=== PATIENT | male | born 1980 | race Caucasian/White ===

== ENCOUNTER → 2020-04-30 09:13 | Outpatient (BNVA) | payer MEDICARE, MEDICAID, SELFPAY | PROVIDERS: PCP Nurse Practitioner Family; Referring Provider Nurse Practitioner Family; Visit Provider Student in an Organized Health Care Education/Training Program | DX: Z76.89 Persons encountering health services in other specified circumstances (principal) | CPT/HCPCS: Q3014 ==

== ENCOUNTER → 2020-06-30 07:30 | Outpatient (BNVA) | payer MEDICARE, MEDICAID, SELFPAY | PROVIDERS: PCP Nurse Practitioner Family; Visit Provider Physician Assistant | DX: Z76.89 Persons encountering health services in other specified circumstances (principal) | CPT/HCPCS: Q3014 ==

== ENCOUNTER 2020-07-08 09:14 | Outpatient (REF) | payer MEDICARE, MEDICAID, SELFPAY ==
--- NOTE | ~2020-07-08 | FL_ITS ---
EXAMINATION: FL BARIUM SWALLOW CLINICAL INFORMATION: Dysphagia COMPARISON: None TECHNIQUE: Barium swallow examination is performed using fluoroscopic evaluation in addition to multiple fluoroscopic spot views. The patient is imaged both upright and prone and using both thick and thin sulfate along with effervescent granules. Fluoroscopy time: 1.3 minutes DAP: 14.7 Gycm2 Images: 79 FINDINGS: Esophagus demonstrates normal distention and motility. No discrete filling defects, mass or mucosal lesions identified. Patient swallowed a barium tablet, with normal passage to the stomach. No hiatal hernia seen. No reflux is seen in the supine position. FL/FL barium swallow IMPRESSION: No significant abnormality demonstrated by barium swallow study. Further evaluation with endoscopy as clinically warranted.
== END 2020-07-08 09:15 | disposition home or self-care (01) ==
LOC: HO.XRAY 09:14
PROVIDERS: Visit Provider Physician Assistant
DX: R13.10 Dysphagia, unspecified (principal)
CPT/HCPCS: 74220

== ENCOUNTER → 2020-07-22 08:29 | Outpatient (BNVA) | payer MEDICARE, MEDICAID, SELFPAY | PROVIDERS: PCP Nurse Practitioner Family; Visit Provider Physician Assistant | DX: Z13.89 Encounter for screening for other disorder (principal) | CPT/HCPCS: 99212 ==

== ENCOUNTER → 2020-08-25 08:40 | Outpatient (BNVA) | payer MEDICARE, MEDICAID, SELFPAY | PROVIDERS: PCP Nurse Practitioner Family; Visit Provider Student in an Organized Health Care Education/Training Program | DX: M1A.09X0 Idiopathic chronic gout, multiple sites, without tophus (tophi) (principal) | CPT/HCPCS: 99212 ==

== ENCOUNTER 2020-09-25 10:30 | Outpatient (REF) | payer MEDICARE, MEDICAID, SELFPAY ==
[2020-09-25 11:36] LABS: Alanine Aminotransferase 24 U/L (0-40); Albumin Level 3.9 g/dL (3.5-5.0); Alkaline Phosphatase 81 U/L (39-117); Anion Gap 13 (12-20); Aspartate Amino Transferase 16 U/L (5-37); Bilirubin Total 0.4 mg/dL (0.0-1.0); Blood Urea Nitrogen 19 mg/dL (9-16); Calcium 8.7 mg/dL (8.4-10.2); Carbon Dioxide 22 mmol/L (22-29); Chloride 105 mmol/L (96-108); Estimated Glomerular Filt Rate > 60; Glucose Random 125 mg/dL (60-115); Potassium 4.1 mmol/L (3.3-5.1); Sodium 136 mmol/L (135-145); Total Protein 7.1 g/dL (6.5-8.0); Uric Acid 6.3 mg/dL (3.4-7.0)
== END 2020-09-25 10:31 | disposition home or self-care (01) ==
LOC: HO.HMGCLDS 10:30
PROVIDERS: PCP Nurse Practitioner Family; Visit Provider Student in an Organized Health Care Education/Training Program
DX: M1A.09X0 Idiopathic chronic gout, multiple sites, without tophus (tophi) (principal)
CPT/HCPCS: 36415; 80053; 84550

== ENCOUNTER → 2020-11-23 07:52 | Outpatient (BNVA) | payer MEDICARE, MEDICAID, SELFPAY | PROVIDERS: PCP Nurse Practitioner Family; Visit Provider Physician Assistant | DX: K21.9 Gastro-esophageal reflux disease without esophagitis (principal) | CPT/HCPCS: Q3014 ==

== ENCOUNTER 2020-12-28 08:39 | Outpatient (REF) | payer MEDICARE, MEDICAID, SELFPAY ==
[2020-12-28 12:03] LABS: Alanine Aminotransferase 38 U/L (0-40); Albumin Level 3.9 g/dL (3.5-5.0); Alkaline Phosphatase 79 U/L (39-117); Anion Gap 14 (12-20); Aspartate Amino Transferase 23 U/L (5-37); Bilirubin Total 0.4 mg/dL (0.0-1.0); Blood Urea Nitrogen 15 mg/dL (9-16); Carbon Dioxide 22 mmol/L (22-29); Chloride 108 mmol/L (96-108); Cholesterol 156 mg/dL; Estimated Glomerular Filt Rate > 60; Glucose Fasting 87 mg/dL (60-99); HDL Cholesterol 42 mg/dL; LDL Cholesterol Calculated 103 mg/dl; Potassium 4.5 mmol/L (3.3-5.1); Sodium 139 mmol/L (135-145); Total Protein 7.1 g/dL (6.5-8.0); Triglycerides 56 mg/dL
== END 2020-12-28 08:40 | disposition home or self-care (01) ==
LOC: HO.HMGCLDS 08:39
PROVIDERS: PCP Nurse Practitioner Family; Visit Provider Nurse Practitioner Family
DX: Z00.00 Encounter for general adult medical examination without abnormal findings (principal)
CPT/HCPCS: 36415; 80053; 80061; 84443

== ENCOUNTER → 2021-07-13 08:56 | Outpatient (BNVA) | payer MEDICARE, MEDICAID, SELFPAY | PROVIDERS: PCP Nurse Practitioner Family; Visit Provider Nurse Practitioner Family | DX: M1A.09X0 Idiopathic chronic gout, multiple sites, without tophus (tophi) (principal) | CPT/HCPCS: 99212 ==

== ENCOUNTER 2021-07-16 09:11 | Outpatient (REF) | payer MEDICARE, MEDICAID, SELFPAY ==
[2021-07-16 11:31] LABS: Alanine Aminotransferase 35 U/L (0-40); Alkaline Phosphatase 82 U/L (39-117); Anion Gap 11 (12-20); Aspartate Amino Transferase 24 U/L (5-37); Bilirubin Total 0.5 mg/dL (0.0-1.0); Blood Urea Nitrogen 16 mg/dL (9-16); Calcium 9.1 mg/dL (8.4-10.2); Carbon Dioxide 26 mmol/L (22-29); Chloride 106 mmol/L (96-108); Estimated Glomerular Filt Rate > 60; Glucose Random 99 mg/dL (60-115); Potassium 4.6 mmol/L (3.3-5.1); Sodium 138 mmol/L (135-145); Total Protein 7.2 g/dL (6.5-8.0); Uric Acid 4.7 mg/dL (3.4-7.0)
== END 2021-07-16 09:12 | disposition home or self-care (01) ==
LOC: HO.HMGCLDS 09:11
PROVIDERS: PCP Nurse Practitioner Family; Visit Provider Nurse Practitioner Family
DX: M10.9 Gout, unspecified (principal)
CPT/HCPCS: 36415; 80053; 84550

== ENCOUNTER 2021-12-13 08:11 | Outpatient (REF) | payer MEDICARE, MEDICAID, SELFPAY ==
[2021-12-13 11:22] LABS: MANUAL DIFF FLAG NO
[2021-12-13 11:45] LABS: Basophils Absolute Auto 0.1 X10*3/uL (0.0-0.2); Basophils Percent Auto 1.4 % (0-2); Eosinophils Absolute Auto 0.1 X10*3/uL (0.0-0.4); Eosinophils Percent Auto 1.9 % (0-4); Hematocrit 50.7 % (42.0-52.0); Hemoglobin 17.6 g/dl (14.0-18.0); Imm Gran Abs Auto 0.01 X10*3/uL (0.00-0.03); Imm Gran Pct Auto 0.2 % (0.0-0.4); Lymphocytes Absolute Auto 1.6 X10*3/uL (1.2-4.9); Lymphocytes Percent Auto 32.6 % (20-40); Mean Corpuscular HGB Conc 34.7 g/dl (31.0-36.0); Mean Corpuscular Hemoglobin 32.7 pg (27.0-33.0); Mean Corpuscular Volume 94.2 fL (80.0-98.0); Mean Platelet Volume 10.1 fL (9.4-12.4); Monocytes Absolute Auto 0.5 X10*3/uL (0.1-1.2); Monocytes Percent Auto 9.5 % (2-11); Neutrophils Absolute Auto 2.6 x10*3/uL (2.0-8.3); Neutrophils Percent Auto 54.4 % (45-73); Platelet Count 177 X10*3/uL (160-400); Red Blood Count 5.38 X10*6/uL (4.60-5.80); Red Cell Distribution Width 14.6 % (11.0-16.0); White Blood Count 4.9 X10*3/uL (4.8-10.8)
[2021-12-13 11:56] LABS: Alanine Aminotransferase 22 U/L (0-40); Alkaline Phosphatase 77 U/L (39-117); Anion Gap 15 (12-20); Aspartate Amino Transferase 17 U/L (5-37); Bilirubin Total 0.7 mg/dL (0.0-1.0); Blood Urea Nitrogen 14 mg/dL (9-16); Carbon Dioxide 22 mmol/L (22-29); Chloride 105 mmol/L (96-108); Cholesterol 151 mg/dL; Estimated Glomerular Filt Rate > 60; Glucose Fasting 103 mg/dL (60-99); HDL Cholesterol 44 mg/dL; LDL Cholesterol Calculated 90 mg/dl; Potassium 4.3 mmol/L (3.3-5.1); Sodium 138 mmol/L (135-145); Total Protein 7.2 g/dL (6.5-8.0); Triglycerides 86 mg/dL
[2021-12-13 12:00] LABS: TSH reflex Free T4 3.25 uIU/mL (0.32-4.0)
== END 2021-12-13 08:12 | disposition home or self-care (01) ==
LOC: HO.HMGCLDS 08:11
PROVIDERS: PCP Nurse Practitioner Family; Visit Provider Nurse Practitioner Family
DX: Z00.00 Encounter for general adult medical examination without abnormal findings (principal)
CPT/HCPCS: 36415; 80053; 80061; 84443; 85025

== ENCOUNTER → 2022-05-16 14:21 | Outpatient (BNVA) | payer MEDICARE, MEDICAID, SELFPAY | PROVIDERS: PCP Nurse Practitioner Family; Visit Provider Nurse Practitioner Family | DX: M1A.09X0 Idiopathic chronic gout, multiple sites, without tophus (tophi) (principal); I50.9 Heart failure, unspecified; Q90.9 Down syndrome, unspecified; Q21.3 Tetralogy of Fallot | CPT/HCPCS: 99212 ==

== ENCOUNTER 2022-05-20 11:06 | Outpatient (REF) | payer MEDICARE, MEDICAID, SELFPAY ==
[2022-05-20 14:16] LABS: Blood Urea Nitrogen 13 mg/dL (9-16); Estimated Glomerular Filt Rate > 60; Uric Acid 4.8 mg/dL (3.4-7.0)
== END 2022-05-20 11:07 | disposition home or self-care (01) ==
LOC: HO.HMGCLDS 11:06
PROVIDERS: PCP Nurse Practitioner Family; Visit Provider Nurse Practitioner Family
DX: M10.9 Gout, unspecified (principal)
CPT/HCPCS: 36415; 82565; 84520; 84550

== ENCOUNTER 2022-06-24 09:47 | Outpatient (REF) | payer MEDICARE, MEDICAID, SELFPAY ==
[2022-06-24 11:03] LABS: MANUAL DIFF FLAG NO
[2022-06-24 11:09] LABS: Basophils Percent Auto 0.7 % (0-2); Eosinophils Absolute Auto 0.1 X10*3/uL (0.0-0.4); Eosinophils Percent Auto 1.4 % (0-4); Hematocrit 48.7 % (42.0-52.0); Imm Gran Abs Auto 0.01 X10*3/uL (0.00-0.03); Imm Gran Pct Auto 0.2 % (0.0-0.4); Lymphocytes Absolute Auto 1.7 X10*3/uL (1.2-4.9); Lymphocytes Percent Auto 39.4 % (20-40); Mean Corpuscular HGB Conc 34.9 g/dl (31.0-36.0); Mean Corpuscular Hemoglobin 32.7 pg (27.0-33.0); Mean Corpuscular Volume 93.7 fL (80.0-98.0); Monocytes Absolute Auto 0.3 X10*3/uL (0.1-1.2); Monocytes Percent Auto 7.9 % (2-11); Neutrophils Absolute Auto 2.2 x10*3/uL (2.0-8.3); Neutrophils Percent Auto 50.4 % (45-73); Platelet Count 197 X10*3/uL (160-400); Red Cell Distribution Width 14.2 % (11.0-16.0); White Blood Count 4.3 X10*3/uL (4.8-10.8)
[2022-06-24 11:42] LABS: Alanine Aminotransferase 29 U/L (0-40); Albumin Level 3.8 g/dL (3.5-5.0); Alkaline Phosphatase 84 U/L (39-117); Anion Gap 14 (12-20); Aspartate Amino Transferase 24 U/L (5-37); Bilirubin Total 0.7 mg/dL (0.0-1.0); Blood Urea Nitrogen 15 mg/dL (9-16); Calcium 8.7 mg/dL (8.4-10.2); Carbon Dioxide 21 mmol/L (22-29); Chloride 108 mmol/L (96-108); Cholesterol 147 mg/dL; Estimated Glomerular Filt Rate > 60; Glucose Fasting 95 mg/dL (60-99); HDL Cholesterol 44 mg/dL; LDL Cholesterol Calculated 93 mg/dl; Potassium 4.3 mmol/L (3.3-5.1); Sodium 139 mmol/L (135-145); TSH reflex Free T4 0.83 uIU/mL (0.32-4.0); Total Protein 6.9 g/dL (6.5-8.0); Triglycerides 50 mg/dL
== END 2022-06-24 09:48 | disposition home or self-care (01) ==
LOC: HO.HMGCLDS 09:47
PROVIDERS: PCP Nurse Practitioner Family; Visit Provider Nurse Practitioner Family
DX: K21.9 Gastro-esophageal reflux disease without esophagitis (principal); E03.9 Hypothyroidism, unspecified
CPT/HCPCS: 36415; 80053; 80061; 84443; 85025

== ENCOUNTER 2023-03-20 08:54 | Outpatient (AMB) | payer MEDICARE, MEDICAID, SELFPAY ==
--- NOTE | 2023-03-20 09:10 | MHC.PC.OV ---
Vital Signs 03/20/23 09:13 Height 5 ft 4 in Weight 155 lb BMI 26.6 BP 98/60 Blood Pressure Location Rt brachial Position Sitting Pulse 69 Pulse Source Pulse Oximeter Pulse Oximetry (%) 97 Oxygen Delivery Method Room Air Intake Visit Reasons: PE/ Covered by Insurance Allergies raspberry [RASPBERRY] Allergy (Severe, Verified 03/20/23 10:51) HIVES SALMON Allergy (Severe, Uncoded 03/20/23 10:51) HIVES Medication List - Last Reconciled 03/20/23 by DIEGO Guardado allopurinol 300 mg PO DAILY levothyroxine (Euthyrox) 50 mcg PO DAILY 90 days omeprazole 40 mg PO DAILY 30 days Tobacco use date assessed: 06/19/22 Dental Screening Dental Screen Date: 03/20/23 Did you have a dental visit in the last 12 months?: No Did you have a dental problem in the last 6 months where you did not have access to dental care?: No Was dental information given to patient?: Patient has dentist HPI PE/ Covered by Insurance HPI Details Pt is here for a PE. Will order labs. Pt follows up with cardiology. [facility] Medical History Dysphagia Tetralogy of Fallot Down syndrome Acid reflux Gout Surgical History History of cholecystectomy Family History Paternal Grandfather Prostate cancer Paternal Grandmother Colon cancer Mother Hypertension Maternal Grandmother Mental health disorder Social History Household Members: Family Housing: House Alcohol intake: never Patient Tobacco Use Status: Never used Tobacco e-Cigarette/Vaping Use: Never Used Second Hand Smoke Exposure: No Current occupational status: disabled Cognitive needs: No Hearing needs: No Vision needs: No Questionnaire Thrive Questionnaire Date Thrive assessed: 12/13/21 AUDIT C Alcohol Use Questionnaire (AUDIT-C) 1. How often do you have a drink containing alcohol?: Never 3. How often do you have six or more drinks on one occasion?: Never Total Score: 0 Score Reviewed/Action Taken: No VICTORINO-7 AMB Questionnaire VICTORINO-7 Date VICTORINO - 7 assessed: 12/13/21 Source: Developed by Drs. Dony Madrigal, Harleen Mack, Rodrigo Zavala and colleagues, with an educational muna from [employer]. Review of Systems Const Denies chills and Denies fever(s) Eyes Denies blurry vision ENT Denies vertigo, Denies dizziness and Denies sore throat Card Denies chest pain at rest, Denies chest pain with activity, Denies diaphoresis, Denies dyspnea and Denies dyspnea on exertion Resp Denies cough, Denies dyspnea, Denies dyspnea on exertion and Denies wheezing GI Denies abdominal pain, Denies melena, Denies hematochezia, Denies constipation, Denies diarrhea and Denies loose stools Denies hematuria Musc Denies numbness and Denies tingling Skin/Breast Denies lesions Neuro Denies vertigo, Denies dizziness, Denies numbness and Denies tingling Psych Denies anxiety, Denies depression, Denies homicidal ideation, Denies suicidal ideation and Denies other (substance abuse) Aller/Immun Denies wheezing Physical exam (Primary Care) Vital Signs: Last Vital Signs Pulse 69 03/20/23 09:13 BP 98/60 03/20/23 09:13 Pulse Ox 97 03/20/23 09:13 Oxygen Delivery Method Room Air 03/20/23 09:13 BMI result Body Mass Index 26.6 Tobacco/Smoking Status: Tobacco use Status Tobacco use date assessed 06/19/22 03/20/23 09:11 Patient Tobacco Use Status Never used Tobacco 03/20/23 09:11 e-Cigarette/Vaping Use Never Used 03/20/23 09:11 Thrive Assessment: Date of Thrive Assessment Date Thrive assessed 12/13/21 03/20/23 09:11 Const General: cooperative Nutritional Appearance: well nourished Orientation/consciousness: patient oriented x3 HENMT Head: Yes normal to inspection, Yes normocephalic and Yes atraumatic Ears: TM's normal bilaterally Eyes General: appearance normal, both eyes and all related structures Alignment and Position: alignment normal and position normal Neck Neck: Yes normal visual inspection and Yes no lymphadenopathy Thyroid: Thyroid normal Resp Effort & Inspection: normal respiratory effort Auscultation: clear to auscultation bilaterally Cardio Rate: regular rate Rhythm: regular rhythm Heart sounds: S1 normal heart sound present, S2 normal heart sound present and Murmur heart sound present systolic GI Palpation (GI): Soft to palpation and nontender Auscultation: normal bowel sounds Male General Exam: Yes normal external exam Penis: normal penis Scrotum: scrotum normal, testes descended bilaterally and no inguinal hernias Testes: no testicular mass Skin Rashes: no rashes Neuro General: patient oriented x3, moves all extremities, no focal motor deficits and deep tendon reflexes 2+ bilaterally Romberg Test: Negative Psych Appearance: grossly normal Mental Status: mental status grossly normal Speech and movement: Normal speech and movement present Affect: normal affect Attitude: cooperative Thought process: Normal thought process present Thought content: Normal thought content present Insight: Good insight present (Psych) Judgement: Good judgement present (Psych) Assessment and Plan Assessment & Plan (1) Physical exam: Code(s): Z00.00 - Encounter for general adult medical examination without abnormal findings Plan: Labs ordered (2) Gout: Code(s): M10.9 - Gout, unspecified Qualifiers: Chronicity: chronic Gout etiology: idiopathic Gout site: multiple sites Presence of tophus: without tophus Qualified Code(s): M1A.09X0 - Idiopathic chronic gout, multiple sites, without tophus (tophi) Plan: Uric acid ordered Plan The patient agreed to the use of a back office medical assistant for this encounter. Scribed for DIEGO Agarwal by Venecia Cisneros back office medical assistant, on 03/20/2023 at 09:30 EST. Orders: Orders Complete Blood Count Auto Diff Today Z00.00 - Encounter for general adult medical examination without abnormal findings Comprehensive [place]. Panel Fast Today Z00.00 - Encounter for general adult medical examination without abnormal findings TSH reflex Free T4 Today Z00.00 - Encounter for general adult medical examination without abnormal findings UA CC w/rflx Micro + Cult Today Z00.00 - Encounter for general adult medical examination without abnormal findings Lipid Panel Today Z00.00 - Encounter for general adult medical examination without abnormal findings Uric Acid Today M10.9 - Gout, unspecified Coding Level of Care Code Est Pt Prev Care 40-64y(40957) Diagnoses Physical exam Z00.00 Idiopathic chronic gout of multiple sites without tophus M1A.09X0 Chronicity: chronic Gout etiology: idiopathic Gout site: multiple sites Presence of tophus: without tophus
[2023-03-20 09:13] VITALS: BP 98/60; PULSE 69; O2SAT 97; BMI 26.6
== END 2023-03-20 13:03 | disposition home or self-care (01) ==
PROVIDERS: PCP Nurse Practitioner Family; Visit Provider Nurse Practitioner Family
DX: Z00.00 Encounter for general adult medical examination without abnormal findings (principal); M1A.09X0 Idiopathic chronic gout, multiple sites, without tophus (tophi)
CPT/HCPCS: 99396

== ENCOUNTER 2023-04-14 09:17 | Outpatient (REF) | payer MEDICARE, MEDICAID, SELFPAY ==
[2023-04-14 11:11] LABS: MANUAL DIFF FLAG NO
[2023-04-14 11:17] LABS: Basophils Absolute Auto 0.1 X10*3/uL (0.0-0.2); Basophils Percent Auto 1.3 % (0-2); Eosinophils Absolute Auto 0.1 X10*3/uL (0.0-0.4); Eosinophils Percent Auto 1.6 % (0-4); Hematocrit 49.9 % (42.0-52.0); Hemoglobin 16.8 g/dl (14.0-18.0); Imm Gran Abs Auto 0.01 X10*3/uL (0.00-0.03); Imm Gran Pct Auto 0.2 % (0.0-0.4); Lymphocytes Absolute Auto 1.7 X10*3/uL (1.2-4.9); Lymphocytes Percent Auto 37.9 % (20-40); Mean Corpuscular HGB Conc 33.7 g/dl (31.0-36.0); Mean Corpuscular Hemoglobin 31.6 pg (27.0-33.0); Monocytes Absolute Auto 0.4 X10*3/uL (0.1-1.2); Monocytes Percent Auto 8.7 % (2-11); Neutrophils Absolute Auto 2.2 x10*3/uL (2.0-8.3); Neutrophils Percent Auto 50.3 % (45-73); Platelet Count 198 X10*3/uL (160-400); Red Blood Count 5.31 X10*6/uL (4.60-5.80); Red Cell Distribution Width 14.9 % (11.0-16.0); White Blood Count 4.5 X10*3/uL (4.8-10.8)
[2023-04-14 11:35] LABS: Alanine Aminotransferase 33 U/L (0-40); Albumin Level 3.9 g/dL (3.5-5.0); Alkaline Phosphatase 81 U/L (39-117); Anion Gap 11 (12-20); Aspartate Amino Transferase 27 U/L (5-37); Bilirubin Total 0.6 mg/dL (0.0-1.0); Blood Urea Nitrogen 13 mg/dL (9-16); Calcium 8.7 mg/dL (8.4-10.2); Carbon Dioxide 24 mmol/L (22-29); Chloride 107 mmol/L (96-108); Cholesterol 142 mg/dL (<200); Estimated Glomerular Filt Rate > 60; Glucose Fasting 89 mg/dL (60-99); HDL Cholesterol 41 mg/dL (>40); LDL Cholesterol Calculated 91 mg/dL (<100); Potassium 4.1 mmol/L (3.3-5.1); Sodium 138 mmol/L (135-145); Total Protein 7.4 g/dL (6.5-8.0); Triglycerides 51 mg/dL (<150)
[2023-04-14 12:21] LABS: TSH reflex Free T4 1.85 uIU/mL (0.32-4.0)
== END 2023-04-14 09:18 | disposition home or self-care (01) ==
LOC: HO.HMGCLDS 09:17
PROVIDERS: PCP Nurse Practitioner Family; Visit Provider Nurse Practitioner Family
DX: Z00.00 Encounter for general adult medical examination without abnormal findings (principal); M10.9 Gout, unspecified; E03.9 Hypothyroidism, unspecified; I35.0 Nonrheumatic aortic (valve) stenosis
CPT/HCPCS: 36415; 80053; 80061; 84443; 84550; 85025

== ENCOUNTER 2023-06-23 10:10 | Outpatient (REF) | payer MEDICARE, MEDICAID, SELFPAY ==
[2023-06-23 11:00] LABS: MANUAL DIFF FLAG NO
[2023-06-23 11:02] LABS: Basophils Absolute Auto 0.1 X10*3/uL (0.0-0.2); Basophils Percent Auto 1.1 % (0-2); Eosinophils Absolute Auto 0.1 X10*3/uL (0.0-0.4); Eosinophils Percent Auto 1.7 % (0-4); Hematocrit 47.7 % (42.0-52.0); Hemoglobin 16.7 g/dl (14.0-18.0); Imm Gran Abs Auto 0.02 X10*3/uL (0.00-0.03); Imm Gran Pct Auto 0.4 % (0.0-0.4); Lymphocytes Absolute Auto 1.5 X10*3/uL (1.2-4.9); Mean Corpuscular Hemoglobin 33.1 pg (27.0-33.0); Mean Corpuscular Volume 94.6 fL (80.0-98.0); Mean Platelet Volume 9.7 fL (9.4-12.4); Monocytes Absolute Auto 0.3 X10*3/uL (0.1-1.2); Monocytes Percent Auto 5.9 % (2-11); Neutrophils Absolute Auto 2.7 x10*3/uL (2.0-8.3); Neutrophils Percent Auto 57.9 % (45-73); Platelet Count 189 X10*3/uL (160-400); Red Blood Count 5.04 X10*6/uL (4.60-5.80); Red Cell Distribution Width 14.2 % (11.0-16.0); White Blood Count 4.6 X10*3/uL (4.8-10.8)
== END 2023-06-23 10:11 | disposition home or self-care (01) ==
LOC: HO.HMGCLDS 10:10
PROVIDERS: PCP Nurse Practitioner Family; Visit Provider Nurse Practitioner Family
DX: D72.819 Decreased white blood cell count, unspecified (principal)
CPT/HCPCS: 36415; 85025

== ENCOUNTER 2023-07-20 09:17 | Outpatient (AMB) | payer MEDICARE, MEDICAID, SELFPAY ==
--- NOTE | 2023-07-20 09:20 | A.OFFVIS_ITS ---
Intake Vital Signs 07/20/23 09:28 Height 5 ft 4 in Weight 159 lb 2.78 oz BMI 27.3 BP 118/70 Blood Pressure Location Rt brachial Position Sitting Pulse 95 Pulse Source Pulse Oximeter Temp 97.9 F Temp Source Skin Pulse Oximetry (%) 95 Oxygen Delivery Method Room Air Intake Visit Reasons: Gout Intake Note: Patient last seen 05/16/22 by Alyssia, presents today for follow up. 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 Cook is a 42yoM with a PMH of Down syndrome and gout ( diagnosed in 2018) who presents for follow-up of gout. He is accompanied by his mother and young nephew. He has not had any gout flares since last visit. He continues on Allopurinol 300mg daily. Previously taking colchicine 0.6mg PRN for flares which he has not needed. Patient continues to do well and denies joint pain today. Continues to adhere to a gout friendly diet. Patient denies any concerns today. History of CHF, and had surgery for Tetralogy of Fallot as a baby, he follows with Cardiology, Dr Armendariz, in [place] and has an upcoming visit. [facility] Medical History (Updated 07/20/23 @ 10:04 by Fanta Courtney [facility]) Heart murmur Dysphagia Tetralogy of Fallot Down syndrome Acid reflux Gout Surgical History History of cholecystectomy Family History Paternal Grandfather Prostate cancer Paternal Grandmother Colon cancer Mother Hypertension Maternal Grandmother Mental health disorder Social History Household Members: Family Housing: House Alcohol intake: never Patient Tobacco Use Status: Never used Tobacco e-Cigarette/Vaping Use: Never Used Second Hand Smoke Exposure: No Current occupational status: disabled Cognitive needs: No Hearing needs: No Vision needs: No Physical Exam Vital Signs: Last Vital Signs Temp 97.9 F 07/20/23 09:28 Pulse 95 07/20/23 09:28 BP 118/70 07/20/23 09:28 Pulse Ox 95 07/20/23 09:28 Oxygen Delivery Method Room Air 07/20/23 09:28 BMI result Body Mass Index 27.3 Vital signs reviewed. Constitutional: Non-toxic appearing. No acute distress. groomed, and well- nourished. HEENT: Normocephalic and atraumatic. External auditory canals without erythema or edema bilaterally. Dry mucous membranes. No pharyngeal erythema or exudates. Skin: Warm and dry. No rashes or lesions noted. Neck: Full and painless range of motion. No cervical lymphadenopathy. Cardio: Systolic murmurs, gallops, No lower extremity edema. No JVD. Pulmonary: No respiratory distress. No accessory muscle usage. Gastrointestinal: Soft, nontender, and nondistended in all 4 quadrants. Normoactive bowel sounds in all 4 quadrants. Musculoskeletal: Normal range of motion in joints throughout the body. No deformity or other signs of injury. No tenderness at knees Neuro: Alert and oriented x4. Cranial nerves 2-12 grossly intact. No focal deficits appreciated. Results Reviewed Results Reviewed: Laboratory Tests 07/16/21 12/13/21 12/13/21 09:30 08:20 08:20 WBC 4.9 RBC 5.38 Hgb 17.6 Hct 50.7 Plt Count 177 Absolute Neuts (auto) 2.6 Sodium 138 Potassium 4.3 Anion Gap 15 BUN 14 Creatinine 0.87 Fasting Glucose 103 H Uric Acid 4.7 Calcium 9.0 AST 17 ALT 22 TSH 3.25 Laboratory Tests 04/14/23 04/14/23 06/23/23 09:29 09:29 10:16 WBC 4.5 L 4.6 L RBC 5.31 5.04 Hgb 16.8 16.7 Hct 49.9 47.7 TSH 1.85 Laboratory Tests 04/14/23 09:29 Uric Acid 6.0 Assessment & Plan Assessment & Plan (1) Gout: Code(s): M10.9 - Gout, unspecified Qualifiers: Gout site: multiple sites Gout etiology: idiopathic Chronicity: chronic Presence of tophus: without tophus Qualified Code(s): M1A.09X0 - Idiopathic chronic gout, multiple sites, without tophus (tophi) (2) Heart murmur: Code(s): R01.1 - Cardiac murmur, unspecified Plan #Gout: The patient with a history of gout on allopurinol 300 mg daily. Has not needed to take colchicine 0.6 mg as needed for gout flares.? No gout flares in more than 1 year. Uric acid more elevated from 4.7mg/dL to 6.0 04/2023. Mom says she has been giving him some treats here and there that may not be good for the gout. I will not make any changes at this time, given he has been without flares. He will continue allopurinol 300 mg daily.? Will obtain labs for kidney function and uric acid levels 1 week before next visit. #Heart Murmur: Blowing Murmur, possible systolic noted on exam, continue follow-up with cardiology. Advised to contact our office if he does have a gout flare. Follow-up in the office in 1 year or sooner if needed.? 20 minutes spent reviewing chart, evaluating patient and documenting. Orders: Orders 2 Comprehensive Met. Panel 1 Year M10.9 - Gout, unspecified Erythrocyte Sedimentation Rate 1 Year M10.9 - Gout, unspecified Uric Acid 1 Year M10.9 - Gout, unspecified Uric Acid Today M10.9 - Gout, unspecified Complete Blood Count Auto Diff 1 Year M10.9 - Gout, unspecified C Reactive Protein 1 Year M10.9 - Gout, unspecified C Reactive Protein Today M10.9 - Gout, unspecified Comprehensive Met. Panel Today M10.9 - Gout, unspecified Complete Blood Count Auto Diff Today M10.9 - Gout, unspecified Erythrocyte Sedimentation Rate Today M10.9 - Gout, unspecified Medications: New colchicine 0.6 mg PO DAILY 10 tabs 0RF M10.9 - Gout, unspecified Coding Level of Care Code Est Pt Level 3 (29832) Diagnoses Idiopathic chronic gout of multiple sites without tophus M1A.09X0 Gout site: multiple sites Gout etiology: idiopathic Chronicity: chronic Presence of tophus: without tophus Heart murmur R01.1
[2023-07-20 09:28] VITALS: BP 118/70; PULSE 95; TEMP 36.6; O2SAT 95; BMI 27.3
== END 2023-07-20 09:55 | disposition home or self-care (01) ==
PROVIDERS: PCP Nurse Practitioner Family; Visit Provider Nurse Practitioner Family
DX: M1A.09X0 Idiopathic chronic gout, multiple sites, without tophus (tophi) (principal); R01.1 Cardiac murmur, unspecified
CPT/HCPCS: 99213

== ENCOUNTER → 2023-07-20 09:17 | Outpatient (BNVA) | payer MEDICARE, MEDICAID, SELFPAY | PROVIDERS: PCP Nurse Practitioner Family; Visit Provider Nurse Practitioner Family | DX: M1A.09X0 Idiopathic chronic gout, multiple sites, without tophus (tophi) (principal); R01.1 Cardiac murmur, unspecified | CPT/HCPCS: 99212 ==

== ENCOUNTER 2024-02-13 08:12 | Outpatient (AMB) | payer MEDICARE, MEDICAID, SELFPAY ==
[2024-02-13 08:15] VITALS: BP 118/68; PULSE 52; O2SAT 100; BMI 27.0
--- NOTE | 2024-02-13 08:15 | MHC.OFFVIS ---
Vital Signs 02/13/24 08:15 Height 5 ft 4 in Weight 157 lb 3.033 oz BMI 27.0 BP 118/68 Blood Pressure Location Lt brachial Position Sitting Pulse 52 Pulse Source Pulse Oximeter Pulse Oximetry (%) 100 Oxygen Delivery Method Room Air Intake Visit Reasons: Gout Intake Note: Patient presents for follow up on gout, last seen in the office by Fanta Courtney on 07/20/23. Accompanied by: Mother Allergies raspberry [RASPBERRY] Allergy (Severe, Verified 02/13/24 08:18) HIVES SALMON Allergy (Severe, Uncoded 07/20/23 09:21) HIVES Medication List - Last Reconciled 02/13/24 by Jocelyne Myrick MD allopurinol 300 mg PO DAILY colchicine 0.6 mg PO DAILY levothyroxine (Euthyrox) 50 mcg PO DAILY 90 days omeprazole 40 mg PO DAILY 30 days HPI Comments Details: Patient is a 43-year-old male with Down syndrome and tetralogy of Fallot status post repair who presents for management of chronic non tophaceous gout. Interval History: Patient last seen 07/20/2023 with Fanta Courtney. At that time patient was stable without any flares. Today patient reports no history of flares. Overall doing well. Tolerating allopurinol. Has not had to use rescue colchicine. Rheumatology History: Patient 1st diagnosed with gout in 2018 and has since been colchicine and allopurinol in the past however has been weaned off of the colchicine and is only on allopurinol. Grandfather has a history of gout Medication History: Allopurinol 300mg daily Colchicine 0.mg prn [facility] Medical History (Updated 07/20/23 @ 10:04 by Fanta Courtney [facility]) Heart murmur Dysphagia Tetralogy of Fallot Down syndrome Acid reflux Gout Surgical History History of cholecystectomy Family History Paternal Grandfather Prostate cancer Paternal Grandmother Colon cancer Mother Hypertension Maternal Grandmother Mental health disorder Social History Household Members: Family Housing: House Alcohol intake: never Patient Tobacco Use Status: Never used Tobacco e-Cigarette/Vaping Use: Never Used Second Hand Smoke Exposure: No Current occupational status: disabled Cognitive needs: No Hearing needs: No Vision needs: No Review of Systems Const Details: Review of Systems Constitutional: Denies fever, chills, weight loss ENT: Denies vision changes, eye pain or eye redness, dental caries, dry mouth GI: Denies nausea, vomiting, diarrhea, abdominal pain, change in BM Pulm: Denies SOB, VILLA, hemoptysis, wheezing Cards: Denies chest pain, palpitations Skin: Denies Raynaud's, rash, nail changes, photosensitivity, 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 ?Gait normal. Constitutional: ?Mucous membranes pink and moist patient alert and cooperative HEENT: ?Conjunctiva and sclera clear. ?Pupils equal round and reactive to light. ?No lymphadenopathy. ?Normal dentition. Resp: ?Normal respiratory effort and able to speak in complete sentences. ?Clear to auscultation bilaterally. ?No crackles, rales, rhonchi, wheezes heard. Cards: ?Regular rate and rhythm. ?S@ heard. soft mid systolic murmur heard at the apex. Loud early systolic murmur heard at the left parasternal area. ?Radial pulses intact bilaterally MSK: ?No deformity, swelling, abnormalities noted to bilateral hands. ?No evidence of synovitis. ?Able to move all joints with full range of motion, without limitation. Results Reviewed Results Reviewed: Laboratory Tests 04/14/23 06/23/23 09:29 10:16 WBC 4.6 L RBC 5.04 Hgb 16.7 Plt Count 189 Sodium 138 Potassium 4.1 Chloride 107 Carbon Dioxide 24 BUN 13 Creatinine 0.85 Uric Acid 6.0 Calcium 8.7 Total Bilirubin 0.6 AST 27 ALT 33 Alkaline Phosphatase 81 Total Protein 7.4 Albumin 3.9 Assessment & Plan Assessment & Plan (1) Gout: Code(s): M10.9 - Gout, unspecified Category: Medical Qualifiers: Chronicity: chronic Gout etiology: idiopathic Gout site: multiple sites Presence of tophus: without tophus Qualified Code(s): M1A.09X0 - Idiopathic chronic gout, multiple sites, without tophus (tophi) Plan: #Nontophaceous Gout Patient currently in remission. Tolerating allopurinol 300 mg daily. Has not had any flares. We will continue allopurinol 300 mg daily. Can be seen in 8 months to 1 year Plan I spent 25 minutes reviewing the record and labs, seeing the patient, discussing the treatment plan and documenting in the medical record Medications: Discontinued amoxicillin take 4 tabs, at once, 1 hr before dental procedure Discontinued Reason: Patient Completed Course 2,000 mg (4 x 500 mg) PO ONCE 1 day 4 tabs 4RF On Hold colchicine Hold Comment: Doctor's Order 0.6 mg PO DAILY 10 tabs 0RF M10.9 - Gout, unspecified Coding Level of Care Code Est Pt Level 3 (73466) Diagnoses Idiopathic chronic gout of multiple sites without tophus M1A.09X0 Chronicity: chronic Gout etiology: idiopathic Gout site: multiple sites Presence of tophus: without tophus
== END 2024-02-13 08:40 | disposition home or self-care (01) ==
PROVIDERS: PCP Nurse Practitioner Family; Visit Provider Student in an Organized Health Care Education/Training Program
DX: M1A.09X0 Idiopathic chronic gout, multiple sites, without tophus (tophi) (principal)
CPT/HCPCS: 99213

== ENCOUNTER → 2024-02-13 08:12 | Outpatient (BNVA) | payer MEDICARE, MEDICAID, SELFPAY | PROVIDERS: PCP Nurse Practitioner Family; Visit Provider Student in an Organized Health Care Education/Training Program | DX: M1A.09X0 Idiopathic chronic gout, multiple sites, without tophus (tophi) (principal) | CPT/HCPCS: 99212 ==

== ENCOUNTER 2024-04-22 08:48 | Outpatient (AMB) | payer MEDICARE, MEDICAID, SELFPAY ==
[2024-04-22 08:55] VITALS: BP 116/72; PULSE 66; O2SAT 97; BMI 26.4
--- NOTE | 2024-04-22 08:55 | A.OFFVIS_ITS ---
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 mother is pt's primary caregiver. Pt does have down syndrome, goes to a daily program, doing well overall. [facility] Medical History Heart murmur Dysphagia Tetralogy of Fallot Down syndrome Acid reflux Gout Surgical History History of cholecystectomy Family History Paternal Grandfather Prostate cancer Paternal Grandmother Colon cancer Mother Hypertension Maternal Grandmother Mental health disorder Social History Household Members: Family Housing: House Alcohol intake: never Patient Tobacco Use Status: Never used Tobacco e-Cigarette/Vaping Use: Never Used Second Hand Smoke Exposure: No Current occupational status: disabled Cognitive needs: No Hearing needs: No Vision needs: No Questionnaire Medicare Wellness Checkup What gender do you identify with?: male During the past 4 weeks, how much have you been bothered by emotional problems such as feeling anxious, depressed, irritable, sad or downhearted, and blue?: not at all During the past 4 weeks, has your physical & emotional health limited your social activities with family, friends, neighbors, or groups?: not at all During the past 4 weeks, how much bodily pain have you generally had?: no pain During the past 4 weeks, was someone available to help you if you needed & wa nted help?: yes, as much as I wanted During the past 4 weeks, what was the hardest physical activity you could do for at least 2 minutes?: moderate Can you get to places out of walking distance without help? (For eg., can you travel alone on buses, taxis or drive your car?): No Can you go shopping for groceries or clothes without someone's help?: No Can you prepare your own meals?: No Can you do your housework without help?: No Because of any health problems, do you need the help of another person with your personal care needs such as eating, bathing, dressing or getting around the house?: Yes Can you handle your own money without help?: No During the past 4 weeks, how would you rate your health in general?: good During the past 4 weeks how have things been going for you?: very well; could hardly better Are you having difficulties driving your car?: not applicable, I don't use a car Do you always fasten your seat belt when you are in a car?: yes, usually During past 4 weeks, have you been bothered by the following: never: Falling or dizzy when standing up, Sexual problems?, Trouble eating well?, Teeth or denture problems?, Problems using the telephone? and Tiredness or fatigue? Have you fallen 2 or more times in the past year?: No Are you afraid of falling?: No Are you a smoker?: no During the past 4 weeks, how many drinks of wine, beer, or other alcoholic beverages did you have?: no alcohol at all Do you exercise for about 20 minutes 3 or more times a week?: yes, most of the time Have you been given information to help with the following?: no: Hazards in your house that might hurt you? and no: Keeping track of your medications? How often do you have trouble taking medicines the way you have been told to take them?: I always take medicine as prescribed How confident are you that you can control & manage most of your health problems?: very confident What is your race?: White Mini Mental State Exam (MMSE) Orientation What is the (year) (season) (date) (day) (month)?: year, season, date and day Where are we (state) (county) (town or city) (hospital) (floor)?: state, county, town or city, hospital/clinic and floor Registration Name of 3 unrelated objects clearly and slowly, then ask patient to repeat all 3 of them. (1st repeat determines score. Make sure they can repeat all three): object 1, object 2 and object 3 Attention & Calculation (CHOOSE ONE) Spell WORLD backwards (DLROW): 2 letters Recall Ask patient to repeat the 3 items from question #3.: object 1, object 2 and object 3 Language Show patient a wristwatch & ask what it is. Repeat for pencil.: watch and pencil Ask the patient to repeat the phrase 'No ifs, ands, or buts' after you.: correct Ask the patient to 'take a piece of paper with their right hand' 'fold paper in half' 'place paper on floor': take paper in right hand, fold paper in half and place paper on floor Print the sentence 'CLOSE YOUR EYES' on a piece. If patient actually closes eyes then score.: followed written direction Give patient a blank piece of paper & ask to write a sentence. Score if it contains a noun & verb.: sentence contains subject and verb Score Score: 25 Activity of Daily Living Bathing - sponge bath, tub bath or shower: receives help in bathing more than one body part (or not bathed) Dressing - getting clothes from closets & drawers, including inner/outer garments & fasteners.: receives help getting clothes or getting dressed, or stays undressed Toileting - going to the 'toilet room' for urine/bowel elimination & cleaning self/arranging clothes: receives help going to toilet room, cleaning self or arranging clothes Transfer: moves in & out of bed and chair without help (may use support object) Continence: controls urination/bowel movements completely by self Feeding: feeds self without help Total Score: 2 Information obtained from: informant (mother and pt) Using telephone: independent Traveling: needs assistance Shopping: needs assistance Preparing meals: needs assistance Housework: independent Taking medicine: independent Managing money: needs assistance PHQ-9 Over the last 2 weeks, how often have you been bothered by any of the following problems? 1. Little interest or pleasure in doing things: not at all 2. Feeling down, depressed, or hopeless: not at all 3. Trouble falling or staying asleep, or sleeping too much: not at all 4. Feeling tired or having little energy: not at all 5. Poor appetite or overeating: not at all 6. Feeling bad about yourself - or that you are a failure or have let yourself or your family down: not at all 7. Trouble concentrating on things, such as reading the newspaper or watching television: not at all 8. Moving or speaking so slowly that other people could have noticed. Or the opposite - being so fidgety or restless that you have been moving around a lot more than usual: not at all 9. Thoughts that you would be better off or of hurting yourself in some way: not at all Total score: 0 Depression Screening Interpretation: Negative Depression Screening Done: Yes 96887 - PHQ-9 Billing: Yes Source: Developed by Drs. Dony Madrigal, Harleen Mack, Rodrigo Zavala and colleagues, with an educational muna from [employer]. VICTORINO-7 AMB Questionnaire VICTORINO-7 Date VICTORINO - 7 assessed: 04/22/24 Feeling nervous, anxious, or on edge: 0 = Not at all Not being able to stop or control worryin = Not at all Worrying too much about different things: 0 = Not at all Trouble relaxin = Not at all Being so restless that it is hard to sit still: 0 = Not at all Becoming easily annoyed or irritable: 0 = Not at all Feeling afraid as if something awful might happen: 0 = Not at all Total VICTORINO-7 score (0-4 normal; 5-9 mild; 10-14 moderate; 15-21 severe): 0 Source: Developed by Drs. Dony Madrigal, Rodrigo López and colleagues, with an educational muna from [employer]. VICTORINO-7 Assessment Billing VICTORINO-7 Assessment Tool: VICTORINO-7 Assessment 67838 Review of Systems Const Denies fatigue Card Denies chest pain, Denies chest pain with activity and Denies diaphoresis Resp Denies cough GI Denies melena and Denies hematochezia Skin/Breast Denies furuncle Neuro Details: HX of down syndrome Denies behavioral changes Psych Denies anxiety, Denies behavioral changes and Denies depression Endo Denies fatigue Physical Exam Vital Signs: Last Vital Signs Pulse 66 04/22/24 08:55 BP 116/72 04/22/24 08:55 Pulse Ox 97 04/22/24 08:55 BMI result Body Mass Index 26.4 Neuro Other: neg rhomberg, passed whisper test, could not perform tandem walking, able to stand from sitting position. Assessment & Plan Assessment & Plan (1) Encounter for annual wellness visit (AWV) in Medicare patient: Code(s): Z00.00 - Encounter for general adult medical examination without abnormal findings (2) Hearing loss: Code(s): H91.90 - Unspecified hearing loss, unspecified ear Plan . Orders: Referrals Speech and Hearing Referral H91.90 - Unspecified hearing loss, unspecified ear Medications: New clotrimazole-betamethasone 1-0.05 % 1 appl topical BID 2 weeks 45 grams 0RF Quality Reporting (2019) Depression/Bipolar (159/160/161/177) PHQ-9: Total score: 0 Coding Level of Care Code Medicare First (G0438) Diagnoses Encounter for annual wellness visit (AWV) in Medicare patient Z00.00 Hearing loss H91.90 CPT Codes Advance Care Planning - Time spent: 1-15 minutes, on File ([id number]) Additional Codes VICTORINO-7 Assessment Billing - VICTORINO-7 Assessment Tool: VICTORINO-7 Assessment 76029 ([id number]) PHQ-9 - 79558 - PHQ-9 Billing: Yes ([id number]) Advance Care Planning Forms completed: Health Care Proxy (mother will bring in copy), MOLST (filled out today, we have a copy, original given to primary caregiver (mother)) and Living will (not done) Time spent: 1-15 minutes, on File Actual minutes spent: 10
== END 2024-04-22 09:46 | disposition home or self-care (01) ==
PROVIDERS: PCP Nurse Practitioner Family; Visit Provider Nurse Practitioner Family
DX: Z00.00 Encounter for general adult medical examination without abnormal findings (principal); H91.93 Unspecified hearing loss, bilateral

== ENCOUNTER → 2024-04-22 08:48 | Outpatient (BNVA) | payer MEDICARE, MEDICAID, SELFPAY | PROVIDERS: PCP Nurse Practitioner Family; Visit Provider Nurse Practitioner Family | DX: Z00.00 Encounter for general adult medical examination without abnormal findings (principal); H91.90 Unspecified hearing loss, unspecified ear | CPT/HCPCS: 96127 ==

== ENCOUNTER 2024-07-23 08:51 | Outpatient (REF) | payer MEDICARE, MEDICAID, SELFPAY ==
--- OUTSIDE RECORDS SUMMARY | 2024-07-23 09:24 | XMS_ITS ---
Author Organization [facility] Address [address] [place] [address] Care Team Providers Care Political Aide Name Role Phone Miguel Bishop Primary Care Provider Unav ailable Juan Ortiz Unavailable [phone] Allergies No Known Allergies REASON FOR VISIT Painful nail(s) aggrevated by shoes causing difficulty standing/walking, Skin Problem Medications Medication SIG (Take, Route, Frequency, Duration) Notes Start Date End Date Status Ammonium Lactate 12 % 1 application Exte rnally Twice a day for 30 days Active Ciclopirox Olamine 0.77 % 1 application Externally Twice a day for 30 days Active Levothyroxine Sodium 50 MCG 1 tablet in the morning on an empty stomach Orally Once a day Active Omeprazole 40 MG 1 capsule 30 minutes before morning meal Orally Once a day Active Allopurinol - as directed Acti ve Social History Tobacco Use: Social History Observation Description Date Details (start date - stop date) Never Smoker NA - NA Tobacco Use/Smoking Question Answer Notes Are you a: nonsmoker Additional Findings: Tobacco Non-User Aggressive non-smoker Alcohol Screen Question Answer Notes Did you have a drink containing alcohol in the p ast year? No Points 0 Interpretation Negative Tobacco use other than smoking: Question Answer Notes Are you an other tobacco user? No Vital Signs Height 5ft 1in in 02/05/2024 Weight 157 lbs 02/05/2024 BMI 29.66 kg/m2 02/05/2024 Procedures Procedure Date Ordered Date Performed Result Body Sit e 98901-OJYZKRQ NAIL, 6 OR MORE 02/05/2024 N/A Encounters Encounter Location Date Provider Diagnosis [facility] [address] [place] [address] 02/05/2024 Juan Ortiz Tinea unguium B35.1 ; Pain in right toe(s) M79.674 ; Pain in left toe(s) M79.675 and Tinea pedis of both feet B35.3 Assessments Encounter Date Diagnosis (ICD Code) Assessment Notes Treatment Notes Treatment Clinical Notes Section Notes 02/05/2024 Tinea unguium (ICD-10 - B35.1) 02/05/2024 Pain in right toe(s) (ICD-10 - M79.674) 02/05/2024 Pain in left toe(s) (ICD-10 - M79.675) 02/05/2024 Tinea pedis of both feet (ICD-10 - B35.3) 02/05/2024 Other Plan Of Treatment Pending Test Test Name Order Date [id number] NAIL, 6 OR MORE 02/05/2024 Next Appt Details Follow Up: prn, Reason: Provider Name:Juan Ortiz , 08/15/2024 09:00:00 AM, [address] [place] [address], [phone], Procedure Notes * Category Sub-Category Detail Notes Debride Nail 6-10 Nail debridement Performance o f this nail treatment by a nonprofessional would put this patients foot and overall health at risk. Therefore, nail debridement was performed extensively to reduce/remove overall nail length, girth, thickness, subungual debris, and necrotic tissue, by manual and/or electrical means through the use of a nail nipper and/or dremel-type napper grinder, to a more viable healthy nail plate or bed tissue 6-10. Silver nitrate used for any petechial bleeding as necessary. Definitive antifungal treatment options have been reviewed and discussed with the patient. The patient chooses, no pharmaceutical tx - [address]23 Progress Notes * Alexander TANNERDOB:[birth year] (43 yo M)Acc No.[id number]:02/05/2024 Progress Note Patient:?Neri Tanner Provider:?Juan Ortiz DPM :1980???Age:43 Y???Sex:Male Thierry e:02/05/2024 Address:[address] [place] [address] [place], [id number] Pcp:GERALDINE Agarwal Subjective: * Chief Complaints: * ???Painful nail(s) aggrevate d by shoes causing difficulty standing/walkingSkin Problem * HPI: ???Painful Nails:?Pt States Last PCP Visit:?Date:?11/16/2023 ???Skin problems:?Treatments:?Medication (Ciclopirox Olamine 0.77 Cream) , states adherence to recommended treatment application.? * ROS:?General/Constitutional:?Nausea?denies.?Vomiting?denies.?Hunger Thirst?denies.?Loss appetite?denies.?Chills?denies.?Fatigue?denies.?Fever?denies.?Night Sweats?denies.?Unexplained weight loss?denies.?Unexplained weight gain?denies.?HEENTM:?Dentures?denies.?Dizziness?denies.?Glasses/contacts?admits.?Retinopathy?de nies.?Blurred/double vision?denies.?TMJ?denies.?Discharge/drainage?denies.?Implants?denies.?Sore throat?denies.?Dental implants?denies.?Hard of hearing ?admits.?Difficulty chewing/swallowing/speaking?denies.?Nose bleeds?denies.?Sore mouth?denies.?Respiratory:?On Oxygen?denies.?Pneumonia/pleurisy?denies.?Bronchitis?denies.?Emphysema?denies.?C oughing?denies.?Cough blood?denies.?Shortness of breath?denies.?Wheezing?denies.?Cardiovascular:?Pacemaker?denies.?MVP?denies.?WPW?denies.?CHF?denies.?Heart attack?denies.?Septal defect?denies.?Rapid beat?denies.?Chest pain ?denies.?Atrial Fib.?denies.?Murmur/Palpitations?denies.?Gastrointestinal:?Hemorrhoids?denies.?Stomach/Abdominal pain?denies.?Dark blood stool?denies.?Irritable bowel ?denies.?Constipation?denies.?Diarrhea?denies.?Hematology:?Swelling?denies.?Clots?denies.?Varicose Veins?denies.?Bruising?denies.?Bleeding problem?denies.?Genitourinary:?Blood urine?denies.?Frequent/Painfu/urination/bladder control?denies.?Kidney stones?denies.?Infection (UTI)?denies.?Nephropathy?denies.?sex trans dis (STD)?denies.?Prostate?denies.?Musculoskeletal:?Hammertoes?admits.?Bunions?admits.?Back Pain?denies.?Muscle Cramps/ Resting?denies.?Muscle cramps / walking?denies.?Generalized aches and pains?denies.?Weakness?denies.?Integ.:?Ford?denies.?Scars?denies.?Corns/calluses?admits.?Ingrown nails?admits.?Painful nails?admits.?Open Sores?denies.?Rashes?denies.?Neurologic:?Difficulty sleeping?denies.?Brain disorder?denies.?Numbness?denies.?Balance trouble?denies.?Confusion?denies.?Fainting/blackouts?denies.?Tingling?denies.?Tr emors?denies.? * Medical History:? * Surgical History:?Gall bladd er removal 10/16/2016tetralogy of Fallots 1984 * Hospitalization/Major Diagno stic Procedure:?Denies Past Hospitalization * Family History:?Mother: carol martinez, foot problems, kidney/liver disease, diagnosed with Family history of arthritis, Unspecified essential hypertension.?Father: .? * Social History:?Tobacco Use:?Tobacco Use/Smoking?Are you a:?nonsmoker ?Additional Findings: Tobacco Non-User?Aggressive non-smoker ?Tobacco use other than smoking?Are you an other tobacco user??No ???Drugs/Alcohol:?Drugs?Have you used drugs other than those for medical reasons in the past 12 months??No ?Alcohol Screen?Did you have a drink containing alcohol in the past year??No ?Points?0 ?Interpretation?Negative ???Miscellaneous:?no Caffeine. ?no Exercise. ?Marital status: single. * Medications:?TakingOmeprazol e 40 MG Capsule Delayed Release 1 capsule 30 minutes before morning meal Orally Once a dayAllopurinol - Powder as directed Levothyroxine Sodium 50 MCG Tablet 1 tablet in the morning on an empty stomach Orally Once a dayAmmonium Lactate 12 % Cream 1 application Externally Twice a dayCiclopirox Olamine 0.77 % Cream 1 application Externally Twice a dayMedication List reviewed and reconciled with the patientTaking Omeprazole 40 MG Capsule Delayed Release 1 capsule 30 minutes before morning meal Orally Once a dayTaking Allopurinol - Powder as directed Taking Levothyroxine Sodium 50 MCG Tablet 1 tablet in the morning on an empty stomach Orally Once a dayTaking Ammonium Lactate 12 % Cream 1 application Externally Twice a dayTaking Ciclopirox Olamine 0.77 % Cream 1 application Externally Twice a dayMedication List reviewed and reconciled with the patient * Allergies:?N.K.D.A.yes[Aller gies Verified] Objective: * Vitals:?Ht:5ft 1in, Wt:157, BMI:29.66, Shoe size:4.5W, Ht-cm: 154.94 cm, Wt-k.21 kg. * Examination: ???Nails: ?NAILS are:?Elongated, overgrown, dystrophic, lytic, greater than 3mm thick, discolored and friable with crumbly malodorous subungual debris, with pain on palpation , T2 , T3 , T4 , T5 , T6 , T7 , T9.?Dermatologic: ?SKIN FINDINGS:? Skin shows approximately 70-80% LESS, sign(s) of, erythema, scaling, in a moccasin fashion, no fissure(s) present, B/L.? Assessment: * Assessment: 1.?Tinea unguium - B35.1?2.? Pain in right toe(s) - M79.674?3.?Pain in left toe(s) - M79.675?4.?Tinea pedis of both feet - B35.3, Acute problem, Stable (1=3),Response to treatment - Improvement? Plan: * Treatment: * Procedures:?Debride Nail 6-10:?Nail debridement?Performance of this nail treatment by a nonprofessional would put this patients foot and overall health at risk. Therefore, nail debridement was performed extensively to reduce/remove overall nail length, girth, thickness, subungual debris, and necrotic tissue, by manual and/or electrical means through the use of a nail nipper and/or dremel-type napper grinder, to a more viable healthy nail plate or bed tissue 6-10. Silver nitrate used for any petechial bleeding as necessary. Definitive antifungal treatment options have been reviewed and discussed with the patient. The patient chooses, no pharmaceutical tx - 40462.? * Procedure Codes:?38878 DEBRI DE NAIL, 6 OR MORE * Preventive Medicine:? ??Counseling:?Discussion:?-12: Office or other outpatient visit for the evaluation and management of an established patient, which required a medically appropriate history and/or examination and STRAIGHTFORWARD level of MEDICAL DECISION MAKING, 1 SELF-LIMITED OR MINOR PROBLEM, MINIMAL- NO AMOUNT/COMPLEXITY OF DATA TO BE REVIEWED/ANALYZED, AND MINIMAL RISK OF COMPLICATION/MORBIDITY. The visit on the day of the encounter encompassed interpreting the data and educating the patient as to the nature of their condition, treatment options available according to their individual PMH, meds, allergies, and overall health/living conditions, as well as any potential risks or complications that may occur from a failure to adhere to, and participate in, the recommended course of therapy. The discussion included a complete verbal, and/or written explanation of the examination results, any x-rays taken, the proposed diagnosis, and outline of the treatment plan. A schedule for future care needs was also explained. The patient verbalized an understanding of the instructions at this time and agreed to be an active participant in their treatment. If the patient should think of any questions or concerns after the visit, I have encouraged the patient to call the office.?Tinea Pedis:?Given recent successful results to treatment, The patient is to cont the rx cream as directed.? * Follow Up:?prn * Images: * Sign off status: Completed true * Provider:?Juan Ortiz DPM Date:?2023 Generated for Deven salazar/Joel/Emanuel on:?07/23/2024 09:24 AM EDT History and Physical Notes * HPI (History of Present Illness) Category Sub-Category Detail Notes Category Not es Painful Nails Pt States Last PCP Visit: Date:: 11/16/2023 Skin problems Treatments: Medication (Cicl opirox Olamine 0.77 Cream) , states adherence to recommended treatment application Examination Category Sub-Category Detail Notes Category Not es Dermatologic SKIN FINDINGS: Skin shows appro ximately 70-80% LESS, sign(s) of, erythema, scaling, in a moccasin fashion, no fissure(s) present, B/L Nails NAILS are: Elongated, overg rown, dystrophic, lytic, greater than 3mm thick, discolored and friable with crumbly malodorous subungual debris, with pain on palpation , T2 , T3 , T4 , T5 , T6 , T7 , T9
--- OUTSIDE RECORDS SUMMARY | 2024-07-23 09:25 | XMS_ITS ---
Author Organization [facility] Address [address] [facility] [place] [address] Care Team Providers Care Rubber Compounder Formulator Name Role Phone Miguel Bishop Primary Care Provider Unav ailable Juan Ortiz Unavailable [phone] Allergies No Known Allergies REASON FOR VISIT Painful nail(s) aggrevated by shoes causing difficulty standing/walking, Possible Infection, Skin Problem Medications Medication SIG (Take, Route, Frequency, Duration) Notes Start Date End Date Status Ciclopirox Olamine 0.77 % 1 application Externally Twice a day for 30 days Active Levothyroxine Sodium 50 MCG 1 tablet in the morning on an empty stomach Orally Once a day Active Allopurinol - as directed Acti ve Omeprazole 40 MG 1 capsule 30 minutes before morning meal Orally Once a day Active Ammonium Lactate 12 % 1 application Exte rnally Twice a day for 30 days Active Social History Tobacco Use: Social History Observation [...] No Vital Signs Height 5ft 1in in 11/23/2023 Weight 157 lbs 11/23/2023 BMI 29.66 kg/m2 11/23/2023 Procedures Procedure Date Ordered Date Performed Result Body Sit e 98492-ZMNKLHK NAIL, 6 OR MORE 11/23/2023 N/A 00137 I&D ABSCESS- SIMPLE,SINGLE 11/23/2023 N/A Encounters Encounter Location Date Provider Diagnosis [facility] [place] [address] [place] [address] 11/23/2023 Juan Ortiz Tinea unguium B35.1 ; Pain in right toe(s) M79.674 ; Pain in left toe(s) M79.675 ; Abscess of toe, right L02.611 and Tinea pedis of both feet B35.3 Assessments Encounter Date Diagnosis (ICD Code) Assessment Notes Treatment Notes Treatment Clinical Notes Section Notes 11/23/2023 Tinea unguium (ICD-10 - B35.1) 11/23/2023 Pain in right toe(s) (ICD-10 - M79.674) 11/23/2023 Pain in left toe(s) (ICD-10 - M79.675) 11/23/2023 Abscess of toe, right (ICD-10 - L02.611) Patient Educated with: WOUND CARE INSTRUCTIONS.p df (WOUND CARE INSTRUCTIONS.p df) 11/23/2023 Tinea pedis of both feet (ICD-10 - B35.3) 11/23/2023 Other Plan Of Treatment Medication Medication Name Sig Start Date Stop Date Notes Ciclopirox Olamine 0.77 % 1 application Externally Twice a day for 30 days Treatment Notes Assessment Notes Abscess of toe, right Patient Educated w ith: WOUND CARE INSTRUCTIONS.pdf (WOUND CARE INSTRUCTIONS.pdf) Pending Test Test Name Order Date [id number] NAIL, 6 OR MORE 11/23/2023 00904 I&D ABSCESS- SIMPLE,SINGLE 024 Next Appt Details Follow Up: prn, Reason: Provider Name:Juan Ortiz , 08/15/2024 09:00:00 AM, [address] [place], [address], Procedure Notes * Category Sub-Category Detail Notes Debride Nail 6-10 Nail debridement Nail debridem ent performed extensively to reduce/remove overall nail length, girth, thickness, subungual debris, and necrotic tissue, by manual and electrical means through the use of a nail nipper and/or dremel, to more viable healthy nail plate or bed tissue 1-5. Silver nitrate used for any petechial bleeding as necessary. Patient chooses, no pharmaceutical tx (54495) I&D nail abscess Location T6 , As per exa m Procedure Performed incision a nd drainage of Subungual Abscess. Incised and Drained involved toenail with sterile nipper and curettaged infected devitalized tissue to healthy bleeding bed. Approximately 0.1cc purulent fluid material was drained. Any granuloma present was removed at this time. No underlying bone was visualized. There was minimal bleeding as hemostasis was achieved through the temporary use of either a digital tournaquet or the aforementioned local with epinephrine. Application of sterile Bacitracin dressing performed. Local wound care instructions discussed and dispensed. Recommended Tylenol or Motrin for pain/discomfort (19786) Type Subungual abscess Anesthesia was deferred - PT AB SOLUTELY REFUSES - tolerant to pain without issue/complication Progress Notes * Alexander TANNERDOB:[birth year] (43 yo M)Acc No.[id number]:11/23/2023 Progress Note Patient:?DANIELSANDRAST Neri gamaliel Provider:?Juan Ortiz DPM :1980???Age:43 Y???Sex:Male Thierry e:11/23/2023 Address:[address] [place] [address] [id number] Pcp:GERALDINE Agarwal Subjective: * Chief Complaints: * ???Painful nail(s) aggrevate d by shoes causing difficulty standing/walkingPossible InfectionSkin Problem * HPI: ???Painful Nails:?Pt States Last PCP Visit:?Date:?11/16/2023 ???Skin problems:?Nature:?scaling , redness.?Location:?B/L .?Duration:?several days.?Course:?worse.? * ROS:?General/Constitutional:?Nausea?denies.?Vomiting?denies.?Hunger Thirst?denies.?Loss appetite?denies.?Chills?denies.?Fatigue?denies.?Fever?denies.?Night Sweats?denies.?Unexplained weight loss?denies.?Unexplained [...] alcohol in the past year??No ?Points?0 ?Interpretation?Negative ???Miscellaneous:?Caffeine: no. ?Exercise: no. ?Marital status: single. * Medications:?TakingOmeprazol e 40 MG Capsule Delayed Release 1 capsule 30 minutes before morning meal Orally Once a day Allopurinol - Powder as directed Levothyroxine Sodium 50 MCG Tablet 1 tablet in the morning on an empty stomach Orally Once a day Ammonium Lactate 12 % Cream 1 application Externally Twice a day Medication List reviewed and reconciled with the patientTaking Omeprazole 40 MG Capsule Delayed Release 1 capsule 30 minutes before morning meal Orally Once a day Taking Allopurinol - Powder as directed Taking Levothyroxine Sodium 50 MCG Tablet 1 tablet in the morning on an empty stomach Orally Once a day Taking Ammonium Lactate 12 % Cream 1 application Externally Twice a day Medication List reviewed and reconciled with the patient * Allergies:?N.K.D.A.yes[Aller gies Verified] Objective: * Vitals:?Ht: 5ft 1in, Wt:157, BMI:29.66, Shoe size:4.5 W. * Examination: ???Nails: ?NAILS are:?Elongated, overgrown, dystrophic, lytic, greater than 3mm thick, discolored and friable with crumbly malodorous subungual debris, with pain on palpation , T2 , T3 , T4 , T5 , T6 , T7 , T9.?Abscess/infected nail: ?INSPECTION?Reveals Subungual Abscess with nail fluctuance, mild localized erythema, and yellow purulent fluid with pre-operative size approximately ( 1-2 ) mm square, but without exposed bone , T6.?Dermatologic: ?SKIN FINDINGS:? Skin shows sign(s) of, erythema, scaling, in a moccasin fashion, no fissure(s) present, B/L.? Assessment: * Assessment: 1.?Tinea unguium - B35.1???2 .?Pain in right toe(s) - M79.674???3.?Pain in left toe(s) - M79.675???4.?Abscess of toe, right - L02.611 (Primary)???5.?Tinea pedis of both feet - B35.3???Specify :Acute problem, Uncomplicated (3),Rx drug management (4)??? Plan: * Treatment: 2.?Tinea unguium?Procedure: 11356-[id number] NAIL, 6 OR MORE 3.?Tinea pedis of both feet? Start Ciclopirox Olamine Cream, 0.77 %, 1 application, Externally, Twice a day, 30 days, 60, Refills 2.?? * Procedures:?Debride Nail 6-10:?Nail debridement?Nail debridement performed extensively to reduce/remove overall nail length, girth, thickness, subungual debris, and necrotic tissue, by manual and electrical means through the use of a nail nipper and/or dremel, to more viable healthy nail plate or bed tissue 1-5. Silver nitrate used for any petechial bleeding as necessary. Patient chooses, no pharmaceutical tx (74529).?I&D nail abscess:?Type?Subungual abscess.?Anesthesia?was deferred - PT ABSOLUTELY REFUSES - tolerant to pain without issue/complication.?Location?T6 , As per exam.?Procedure?Performed incision and drainage of Subungual Abscess. Incised and Drained involved toenail with sterile nipper and curettaged infected devitalized tissue to healthy bleeding bed. Approximately 0.1cc purulent fluid material was drained. Any granuloma present was removed at this time. No underlying bone was visualized. There was minimal bleeding as hemostasis was achieved through the temporary use of either a digital tournaquet or the aforementioned local with epinephrine. Application of sterile Bacitracin dressing performed. Local wound care instructions discussed and dispensed. Recommended Tylenol or Motrin for pain/discomfort (26780).? * Procedure Codes:?82311 DRAIN AGE OF SKIN ABSCESS, Modifiers: XS , [id number] DEBRIDE NAIL, 6 OR MORE, Modifiers: XS * Preventive Medicine:? ??Counseling:?Discussion:?-13: Office or other outpatient visit for the evaluation and management of an established patient, which required a medically appropriate history and/or examination and LOW level of DECISION MAKING for: 1 STABLE ACUTE UNCOMPLICATED PROBLEM, 2 OR MORE MINOR PROBLEMS, OR 1 STABLE CHRONIC PROBLEM, THAT POSE(S) A LOW RISK FOR MORBIDITY/MORTALITY. The visit on the day of the [...] encouraged the patient to call the office.?Tinea Pedis:?The patient was counseled on the diagnosis, potential etiologies, and treatment options for their skin condition. We discussed the risks and benefits of each option from performing no treatment, to utilizing OTC topical skin creams, prescription topical creams, customized compounded topical medications, and, if necessary, to utilize oral antifungal therapy. We discussed the advantages and disadvantages of each possible treatment and importance for adherence to all the recommended therapies for optimum success and avoid potential complications such as open sore/infection/possible hospitalization. We discussed the potential effectiveness of each topical preparation as well as each ones possible side effects and/or patient medication interactions if oral therapy is selected. Patient questions re: the advantages and disadvantages of each treatment choice, medication use/dosage, successful outcomes, and application consistency were reviewed and the patient verbalized that all answers were clearly understood. The patient was told they can help alleviate symptoms by utilizing moisture absorbant innersoles with activated charcoal and baking soda, applying antifungal sprays daily, aerating toe web spaces at night by putting cotton or lambs wool between the toes, alternating shoe gear daily if possible so they can dry out, changing socks at least once during the day, wearing well-ventilated shoes or sandals. The patient has decided to apply antifungal skin creams to their feet as directed. Rx was sent to their pharmacy at the time of visit.? * Follow Up:?prn * Images: * Sign off status: Completed Addendum: * ? true * Provider:?Juan Ortiz DPM Date:?2023 Generated for Deven salazar/Joel/Emanuel on:?07/23/2024 09:24 AM EDT History and Physical Notes * HPI (History of Present Illness) Category Sub-Category Detail Notes Category Not es Painful Nails Pt States Last PCP Visit: Date:: 11/16/2023 Skin problems Nature: scaling , redness Location: B/L Duration: several days Course: worse Examination Category Sub-Category Detail Notes Category Not es Dermatologic SKIN FINDINGS: Skin shows sign( s) of, erythema, scaling, in a moccasin fashion, no fissure(s) present, B/L Nails NAILS are: Elongated, overg rown, dystrophic, lytic, greater than 3mm thick, discolored and friable with crumbly malodorous subungual debris, with pain on palpation , T2 , T3 , T4 , T5 , T6 , T7 , T9 Abscess/infected nail INSPECTION Reveals Collins bungual Abscess with nail fluctuance, mild localized erythema, and yellow purulent fluid with pre-operative size approximately ( 1-2 ) mm square, but without exposed bone , T6
--- OUTSIDE RECORDS SUMMARY | 2024-07-23 09:25 | XMS_ITS | Patient Health Record ---
[facility] Organization [facility] Address [address] [facility] [place] [address] Care Team Providers Care Hadoop Consultant Name Role Phone Miguel Bishop Primary Care Provider Unav ailable Juan Ortiz Unavailable [phone] Allergies No Known Allergies Reason For Referral No Information Medications Medication SIG (Take, Route, Frequency, Duration) Notes Start Date End Date Status Ammonium Lactate 12 % 1 application Externally Twice a day for 30 days Active Levothyroxine Sodium 50 MCG 1 tablet in the morning on an empty stomach Orally Once a day Active Ciclopirox Olamine 0.77 % 1 application Externally Twice a day for 30 days Active Allopurinol - as directed Acti ve Omeprazole 40 MG 1 capsule 30 minutes before morning meal Orally Once a day Not-Taking Social History Tobacco Use: Social History Observation [...] Are you an other tobacco user? No Problems Problem Type SNOMED Code ICD Code Onset Dates Problem Status W/U Status Risk Notes Problem Onychomycosis ([id number]) Onychomycosis (B35.1) Active confirmed Vital Signs Blood pressure diastolic 60 mm Hg 05/16/2024 Height 5ft1in in 05/16/2024 Blood pressure systolic 100 mm Hg 05/16/2024 Weight 154 lbs 05/16/2024 BMI 29.09 kg/m2 05/16/2024 Procedures Procedure Date Ordered Date Performed Result Body Sit e 43401-RHOFUEI NAIL, 6 OR MORE 08/28/2023 N/A 13583-IQTQIYY NAIL, 6 OR MORE 11/23/2023 N/A 17782 I&D ABSCESS- SIMPLE,SINGLE 11/23/2023 N/A 70310-[id number] NAIL, 6 OR MORE 02/05/2024 N/A 49878-[id number] NAIL, 6 OR MORE 05/16/2024 N/A Encounters Encounter Location Date Provider Diagnosis [address] [address] 08/28/2023 Juan Diana Tinea unguium B35.1 ; Pain in right toe(s) M79.674 ; Pain in left toe(s) M79.675 and Xerosis of skin L85.[address] [address] 11/23/2023 Juan Diana Tinea unguium B35.1 ; Pain in right toe(s) M79.674 ; Pain in left toe(s) M79.675 ; Abscess of toe, right L02.611 and Tinea pedis of both feet B35.[address] [address] 02/05/2024 Juan Diana Tinea unguium B35.1 ; Pain in right toe(s) M79.674 ; Pain in left toe(s) M79.675 and Tinea pedis of both feet B35.[address] [address] 05/16/2024 Juan Diana Pain in right toe(s) M79.674 ; Onychomycosis B35.1 and Pain in left toe(s) M79.[address] [address] 08/28/2023 Juan Ortiz Assessments Encounter Date Diagnosis (ICD Code) Assessment Notes Treatment Notes Treatment Clinical Notes Section Notes 08/28/2023 Tinea unguium (ICD-10 - B35.1) 08/28/2023 Pain in right toe(s) (ICD-10 - M79.674) 11/23/2023 Tinea unguium (ICD-10 - B35.1) 02/05/2024 Tinea unguium (ICD-10 - B35.1) 02/05/2024 Pain in right toe(s) (ICD-10 - M79.674) 05/16/2024 Pain in right toe(s) (ICD-10 - M79.674) 05/16/2024 Onychomycosis (ICD-10 - B35.1) 02/05/2024 Pain in left toe(s) (ICD-10 - M79.675) 11/23/2023 Pain in right toe(s) (ICD-10 - M79.674) 08/28/2023 Pain in left toe(s) (ICD-10 - M79.675) 08/28/2023 Xerosis of skin (ICD-10 - L85.3) 11/23/2023 Pain in left toe(s) (ICD-10 - M79.675) 02/05/2024 Tinea pedis of both feet (ICD-10 - B35.3) 05/16/2024 Pain in left toe(s) (ICD-10 - M79.675) 11/23/2023 Abscess of toe, right (ICD-10 - L02.611) Patient Educated with: WOUND CARE INSTRUCTIONS.p df (WOUND CARE INSTRUCTIONS.p df) 11/23/2023 Tinea pedis of both feet (ICD-10 - B35.3) 11/23/2023 Other 02/05/2024 Other Plan Of Treatment Pending Test Test Name Order Date [id number] NAIL, 6 OR MORE 08/28/2023 89537-[id number] NAIL, 6 OR MORE 11/23/2023 91701-[id number] NAIL, 6 OR MORE 02/05/2024 64826-[id number] NAIL, 6 OR MORE 05/16/2024 26106 I&D ABSCESS- SIMPLE,SINGLE 024 Next Appt Details Provider Name:Juan Ortiz , 08/15/2024 09:00:00 AM, [address] [facility], [place], [address], Insurance Providers Payer Name Payer Address Payer Phone Subscriber Number Group Number Insured Name Patient Relationship to Insured Coverage Start Date Coverage End Date Medicare National [employer] [address] [place] [address] [id number] Alexander Chand Self - patient is the insured Medical (General) History Medical History History ICD Code Arthritis Gall bladder problems Gout thyroid Chicken pox Heart valve conditions/replacement Down's syndrome Reflux ( GERD) Esophageal stricture blindness CHF Surgical History Surgery Date(Month/Year) Gall bladder removal 10/16/2016 tetralogy of Fallots 1984
--- OUTSIDE RECORDS SUMMARY | 2024-07-23 09:25 | XMS_ITS | Encounter Summary ---
Author Organization [employer] Address [address] [facility] [address] [place] [address] Care Team Providers Care Telesales Supervisor Name Role Phone Unavailable Primary Care Provider Unavailabl e Encounter Details Date Type Department Care Team (Latest Contact Info) Description 06/03/2019 Abstract [facility] Dental, Provider, DDS Social History Tobacco Use Types Packs/Day Years Used Date Smoking Tobacco: Never Assessed Sex and Gender Information Value Date Recorded Sex Assigned at Male 03/13/2022 10:36 AM EDT Legal Sex Male 10:36 AM EDT Gender Identity Male 03/13/2022 10:36 AM EDT Sexual Orientation Straight 03/13/2022 10 :36 AM EDT documented as of this encounter Plan of Treatment Not on file documented as of this encounter Visit Diagnoses Not on filedocumented in this encounter
--- OUTSIDE RECORDS SUMMARY | 2024-07-23 09:25 | XMS_ITS | Clinical Summary ---
Author Organization [employer] Address [address] [facility] [address] [place] [address] Care Team Providers Care Mobile Patrol Officer Name Role Phone Unavailable Primary Care Provider Unavailabl e Social History Tobacco Use Types Packs/Day Years Used Date Smoking Tobacco: Never Assessed Sex and Gender Information Value Date Recorded Sex Assigned at Male 03/13/2022 10:36 AM EDT Legal Sex Male 10:36 AM EDT Gender Identity Male 03/13/2022 10:36 AM EDT Sexual Orientation Straight 03/13/2022 10 :36 AM EDT Last Filed Vital Signs Vital Sign Reading Time Taken Comments Blood Pressure 110/60 07/08/2019 12:02 AM EST Pulse 66 07/08/2019 12:02 AM EST Temperature - - Respiratory Rate - - Oxygen Saturation - - Inhaled Oxygen Concentration - - Weight - - Height - - Body Mass Index - - Plan of Treatment Health Maintenance Due Date Last Done Comments Depression Screening 1982 Lipid Panel 1982 Alcohol/Substance Use Screening 1994 Tobacco Screening 1994 Family Planning (PISQ) 1997 DTaP/Tdap/Td Vaccines (1 - Tdap) 2001 Hepatitis B Vaccines (1 of 3 - 19+ 3-dose series) 2001 COVID-19 Vaccine ( - 2023-2 5 season) 2024 Influenza Vaccine (#1) 2024 Zoster Vaccines (1 of 2) 2032 RSV Patients and Pa tients Aged 60 years or older (1 - 1-dose 75+ series) 2057 HIB Vaccines Aged Out No longer eligi ble based on patient's age to complete this topic HPV Vaccines Aged Out No longer eligi ble based on patient's age to complete this topic Hepatitis A Vaccines Aged Out No long er eligible based on patient's age to complete this topic IPV Vaccines Aged Out No longer eligi ble based on patient's age to complete this topic Meningococcal Vaccine Aged Out No nadir joanne eligible based on patient's age to complete this topic Pneumococcal Vaccine: Pediat rics (0 to 5 Years) and At-Risk Patients (6 to 49) Years) Aged Out No longer eligible b ased on patient's age to complete this topic RSV under 20 months Aged Out No longe r eligible based on patient's age to complete this topic Rotavirus Vaccines Aged Out No longer eligible based on patient's age to complete this topic
--- OUTSIDE RECORDS SUMMARY | 2024-07-23 09:25 | XMS_ITS ---
Author Organization [facility] Address [address] [facility] [place] [address] Care Team Providers Care Project Development Director Name Role Phone Miguel Bishop Primary Care Provider Unav ailable Juan Ortiz Unavailable [phone] Allergies No Known Allergies REASON FOR VISIT Painful nail(s) aggravated by shoes causing difficulty standing/walking Medications Medication SIG (Take, Route, Frequency, Duration) [...] nonsmoker Additional Findings: Tobacco Non-User Aggressive non-smoker Tobacco use other than smoking: Question Answer Notes Are you an other tobacco user? No Problems Problem Type SNOMED Code ICD Code Onset Dates Problem Status W/U Status Risk Notes Problem Onychomycosis (728487907) Onychomycosis (B35.1) Active confirmed Vital Signs Height 5ft1in in 05/16/2024 Weight 154 lbs 05/16/2024 BMI 29.09 kg/m2 05/16/2024 Blood pressure systolic 100 mm Hg 05/16/19 25 Blood pressure diastolic 60 mm Hg 025 Procedures Procedure Date Ordered Date Performed Result Body Sit e 98294-[id number] NAIL, 6 OR MORE 05/16/2024 N/A Encounters Encounter Location Date Provider Diagnosis [facility] [address] [address] 05/16/2024 Juan Ortiz Pain in right toe(s) M79.674 ; Onychomycosis B35.1 and Pain in left toe(s) M79.675 Assessments Encounter Date Diagnosis (ICD Code) Assessment Notes Treatment Notes Treatment Clinical Notes Section Notes 05/16/2024 Pain in right toe(s) (ICD-10 - M79.674) 05/16/2024 Onychomycosis (ICD-10 - B35.1) 05/16/2024 Pain in left toe(s) (ICD-10 - M79.675) Plan Of Treatment Pending Test Test Name Order Date [id number] NAIL, 6 OR MORE 05/16/2024 Next Appt Details Follow Up: prn, Reason: Provider Name:Juan Ortiz , 08/15/2024 09:00:00 AM, [address] [place] [address], [id number], Procedure Notes * Category Sub-Category Detail Notes Debride Nail 6-10 Nail debridement Due to the cl inical pathology outlined in the exam findings, performance of this nail treatment is medically necessary as its management by an unskilled/untrained nonprofessional would put this patients foot and overall health at risk. Therefore, debridement to affected nail(s), as described in exam ( T2 , T3 , T4 , T5 , T6 , T7 , T9), was performed exclusively by the physician of record to reduce/remove overall nail length, girth, thickness, subungual debris, and necrotic tissue, by manual and/or electrical means through the use of a nail nipper and/or dremel-type stand grinder, to a more viable healthy nail plate or bed tissue 6-10 nails in total. Silver nitrate was used for any petechial bleeding as necessary. Definitive antifungal treatment options, both pharmaceutical and surgical, have been reviewed and discussed with the patient. The patient solely prefers the use of intermittent/as needed professional debridement services for their nail condition and understands the need for additional periodic treatments to maintain effectiveness in symptomatic relief - 22215 Progress Notes * Alexander TANNERDOB:[birth year] (43 yo M)Acc No.[id number]:05/16/2024 Progress Note Patient:?Neri TANNER Provider:?Juan Ortiz DPM :1980???Age:43 Y???Sex:Male Thierry e:05/16/2024 Address:[address] [place] [address] , [place], [facility] Pcp:GERALDINE Agarwal Subjective: * Chief Complaints: * ???Painful nail(s) aggravate d by shoes causing difficulty standing/walking * HPI: ???Painful Nails:?Pt States Last PCP Visit:?Date:?03/18/2024 ?Misc:?Pt accompanied by, mother, Xiomara, who has a 110 yo father still living independently in [place].? * ROS:?General/Constitutional:?Nausea?denies.?Vomiting?denies.?Hunger Thirst?denies.?Loss appetite?denies.?Chills?denies.?Fatigue?denies.?Fever?denies.?Night Sweats?denies.?Unexplained weight loss?denies.?Unexplained [...] martinez, foot problems, kidney/liver disease, diagnosed with Unspecified essential hypertension, Family history of arthritis.?Father: .? * Social History:?Tobacco Use:?Tobacco Use/Smoking?Are you a:?nonsmoker ?Additional Findings: Tobacco Non-User?Aggressive non-smoker ?Tobacco use other than smoking?Are you an other tobacco user??No * Medications:?TakingAllopurin ol - Powder as directed Levothyroxine Sodium 50 MCG Tablet 1 tablet in the morning on an empty stomach Orally Once a day Ammonium Lactate 12 % Cream 1 application Externally Twice a day Ciclopirox Olamine 0.77 % Cream 1 application Externally Twice a day Taking Allopurinol - Powder as directed Taking Levothyroxine Sodium 50 MCG Tablet 1 tablet in the morning on an empty stomach Orally Once a day Taking Ammonium Lactate 12 % Cream 1 application Externally Twice a day Taking Ciclopirox Olamine 0.77 % Cream 1 application Externally Twice a day Not-Taking/PRNOmeprazole 40 MG Capsule Delayed Release 1 capsule 30 minutes before morning meal Orally Once a day Medication List reviewed and reconciled with the patientNot-Taking/PRN Omeprazole 40 MG Capsule Delayed Release 1 capsule 30 minutes before morning meal Orally Once a day Medication List reviewed and reconciled with the patient * Allergies:?N.K.D.A.yes[Aller gies Verified] Objective: * Vitals:?Ht: 5ft1in, Wt:154, BMI:29.09, Shoe size: 4.5W, BP:100/60mm Hg, Ht-cm: 154.94 cm, Wt-k.85 kg. * Examination: ???Nails: ?NAILS are:?Elongated, overgrown, dystrophic, lytic, greater than 3mm thick, discolored and friable with crumbly malodorous subungual debris, with pain on palpation , T2 , T3 , T4 , T5 , T6 , T7 , T9, all other nails not described with characteristics as possessing mycosis are elongated, overgrown, and dystrophic.? Assessment: * Assessment: 1.?Pain in right toe(s) - M7 9.674???2.?Onychomycosis - B35.1 (Primary)???3.?Pain in left toe(s) - M79.675??? Plan: * Treatment: * Procedures:?Debride Nail 6-10:?Nail debridement?Due to the clinical pathology outlined in the exam findings, performance of this nail treatment is medically necessary as its management by an unskilled/untrained nonprofessional would put this patients foot and overall health at risk. Therefore, debridement to affected nail(s), as described in exam (?T2?,?T3?,?T4?,?T5?,?T6?,?T7?,?T9), was performed exclusively by the physician of record to reduce/remove overall nail length, girth, thickness, subungual debris, and necrotic tissue, by manual and/or electrical means through the use of a nail nipper and/or dremel-type stand grinder, to a more viable healthy nail plate or bed tissue 6- 10 nails in total. Silver nitrate was used for any petechial bleeding as necessary. Definitive antifungal treatment options, both pharmaceutical and surgical, have been reviewed and discussed with the patient. The patient solely prefers the use of intermittent/as needed professional debridement services for their nail condition and understands the need for additional periodic treatments to maintain effectiveness in symptomatic relief - 15895.? * Procedure Codes:?49933 DEBRI DE NAIL, 6 OR MORE * Follow Up:?prn * Images: * Sign off status: Completed true * Provider:?Juan Ortiz DPM Date:?2024 Generated for Deven salazar/Joel/Emanuel on:?07/23/2024 09:24 AM EDT History and Physical Notes * HPI (History of Present Illness) Category Sub-Category Detail Notes Category Not es Painful Nails Misc: Pt accompanied b y, mother, Xiomara, who has a 110 yo father still living independently in [place] Pt States Last PCP Visit: Date:: 03/18/2024 Examination Category Sub-Category Detail Notes Category Not es Nails NAILS are: Elongated, overg rown, dystrophic, lytic, greater than 3mm thick, discolored and friable with crumbly malodorous subungual debris, with pain on palpation , T2 , T3 , T4 , T5 , T6 , T7 , T9, all other nails not described with characteristics as possessing mycosis are elongated, overgrown, and dystrophic
== END 2024-07-23 08:52 | disposition home or self-care (01) ==
LOC: HO.SH 08:51
PROVIDERS: Visit Provider Nurse Practitioner Family
DX: Z01.118 Encounter for examination of ears and hearing with other abnormal findings (principal); H90.A21 Sensorineural hearing loss, unilateral, right ear, with restricted hearing on the contralateral side; H90.A32 Mixed conductive and sensorineural hearing loss, unilateral, left ear with restricted hearing on the contralateral side
CPT/HCPCS: 92557; 92567